=== PATIENT | male | born 1985 | race Caucasian/White ===

== ENCOUNTER 2017-06-16 20:14 | Emergency (ER) | payer SELFPAY ==
[~2017-06-16] VITALS: Ht 177.8 cm; Wt 68.0 kg
[2017-06-16] MEDS ORDERED: oxyCODONE/APAP 7.5/325 1 TAB TABLET PO ONE (20:45)
[2017-06-16] MEDS ORDERED: ONDANSETRON ODT 4 MG TAB.RAPDIS PO ONE (20:45)
--- NOTE | 2017-06-16 21:16 | PHYS DOC ---
General Chief Complaint: FACE PROBLEM Stated Complaint: JAW INJURY Time Seen by MD: 20:28 Source: patient Exam Limitations: no limitations Problems: History of Present Illness Initial Comments 31 y/o male to ED complains of face injury and left jaw pain. Patient states two nights ago a tow strap came loose hitting to the left side of the face. He was knocked down, denies LOC or neck pain. Mild bleeding from inside the mouth initially with severe left jaw pain at the TMJ. He has tried icing and over the counter medications at home however pain remains sharp/ severe at the left jaw. Left facial swelling has made chewing difficult patient has only been able to drink liquids and eat soup. No epistaxis or other nasal discharge, no ear pain or discharge. Denies global headache just pain at the face, no pain with EOM, no dizziness/n/v/photophobia. Timing/Duration: abrupt Severity: severe Location: facial Prearrival Treatment: over the counter meds, other Associated Symptoms: facial pain/swelling, poor solids intake Allergies: Coded Allergies: No Known Drug Allergies (Unverified , 06/16/17) Past Medical History Medical History: no pertinent history Surgical History: noncontributory Social History Smoker: cigarettes Alcohol: none Drugs: none Constitutional: denies chills, denies diaphoresis, denies fever, denies malaise Eyes: denies blindness, denies blurred vision, denies drainage, denies decreased acuity, denies photophobia Ears: denies dizziness, denies pain, denies tinnitus, denies bloody discharge, denies clear discharge Nose: denies congestion, denies epistaxis, denies bloody discharge, denies clear discharge Mouth: see HPI, denies loose teeth Throat: denies pain, denies neck stiffness Respiratory: denies cough, denies shortness of breath Cardiovascular: denies chest pain, denies syncope Gastrointestinal: denies nausea, denies vomiting Musculoskeletal: see HPI, denies back pain, denies muscle pain, denies neck pain Neurological: see HPI, denies numbness, denies paresthesia, denies weakness Physical Exam General Appearance: no apparent distress (pained expression), other (left facial swelling) Eyes: bilateral eye normal inspection, bilateral eye PERRL, bilateral eye EOMI (painless/full EOM), bilateral eye other (infraorbital swelling/bruising) Ears: bilateral ear auricle normal, bilateral ear canal normal, bilateral ear TM normal Nose: normal inspection (no discharge) Mouth/Throat: other (intraoral laceration left cheek at molars nonbleeding, TTP and swelling left face airway patent, ) Neck: non-tender, supple Cardiovascular/Respiratory: normal peripheral pulses, normal breath sounds Neurologic/Psychiatric: cat and dog bather II-XII nml as tested, no motor/sensory deficits, alert, normal mood/affect, oriented x 3 Skin: normal color, warm/dry Orders, Labs, Meds PATIENT: NAZARIO LAUREANO ACCOUNT: [id number] : 1985 LOCATION: ER AGE: 31 SEX: M EXAM STATUS: REG ER ORD. PHYSICIAN: MARÍA MILLS DO REASON: Left jaw trauma PROCEDURE: CT MAXILLOFACIAL WO CONTRAST EXAM: Maxillofacial bone CT without contrast. HISTORY: Trauma. TECHNIQUE: Computed tomographic images of the maximal facial bones were obtained without contrast. *One or more of the following individualized dose reduction techniques were utilized for this examination: 1. Automated exposure control. 2. Adjustment of the mA and/or kV according to patient size. 3. Use of iterative reconstruction technique. COMPARISON: None. FINDINGS: There are displaced inferior and lateral left orbital and anterior and posterior left maxillary sinus wall fractures. There is mild left maxillary sinus mucosal thickening and a tiny air-fluid level likely due to hemorrhage. There is obstruction of the left ostiomeatal unit. There is no evidence of entrapment of the left extraocular muscles or fat. The temporomandibular joints are intact. There are multiple dental restorations. There are a few missing teeth. The proximal cervical spine and visualized portions of the brain are unremarkable. IMPRESSION: Mildly displaced left inferior and lateral orbital and anterior and posterior maxillary wall fractures with a small left maxillary sinus hemorrhage. Electronically signed by: Edwina Mckee MD (06/16/2017 9:25 PM) [facility] DICTATED AND SIGNED BY: EDWINA MCKEE MD DATE: 06/16/172122 CC: PCP,NO; MARÍA MILLS DO ~ Intraoral laceration not associated with fractures, pain controlled with percocet. I discussed need for ENT consultation as outpatient, need for surgical repair. Discussed potential risks associated with no follow up, encouraged smoking cessation. His questions were answered he expressed agreement/understanding. Departure Time of Disposition: 21:49 Disposition: 01 HOME, SELF-CARE Diagnosis: Left orbit/maxillary sinus fractures, concussion Condition: STABLE Patient Instructions: Concussion and Brain Injury, [id number]-[id number], Orbital Floor Fracture, Non-Blowout Additional Instructions: Please review the patient education materials given by ED staff. No strenuous activity or exercise until cleared by doctor. Ice to affected area 4-6 times daily. [id number] ibuprofen for baseline discomfort. Prescription: Percocet 7.5 mg quantity 30, cephalexin As discussed to prevent potential serious complications from your injuries and is strongly suggested that you follow-up with an ear nose and throat surgeon. It is strongly recommended you stop smoking. You may choose to follow-up with: Dr. Vijay Roberts [phone] call Monday to schedule appointment Return to ED with new or changing symptoms. MARÍA MILLS DO Jun 16, 2017 21:16
--- NOTE | 2017-06-16 21:29 | RAD ---
EXAM: Maxillofacial bone CT without contrast. HISTORY: Trauma. TECHNIQUE: Computed tomographic images of the maximal facial bones were obtained without contrast. *One or more of the following individualized dose reduction techniques were utilized for this examination: 1. Automated exposure control. 2. Adjustment of the mA and/or kV according to patient size. 3. Use of iterative reconstruction technique. COMPARISON: None. FINDINGS: There are displaced inferior and lateral left orbital and anterior and posterior left maxillary sinus wall fractures. There is mild left maxillary sinus mucosal thickening and a tiny air-fluid level likely due to hemorrhage. There is obstruction of the left ostiomeatal unit. There is no evidence of entrapment of the left extraocular muscles or fat. The temporomandibular joints are intact. There are multiple dental restorations. There are a few missing teeth. The proximal cervical spine and visualized portions of the brain are unremarkable. IMPRESSION: Mildly displaced left inferior and lateral orbital and anterior and posterior maxillary wall fractures with a small left maxillary sinus hemorrhage. Electronically signed by: Edwina Mendosa MD (06/16/2017 9:25 PM) [facility]
[2017-06-16] MEDS ORDERED: CEPH500C PO (21:48)
[2017-06-16] MEDS ORDERED: OXYC-327 PO (21:48)
[2017-06-16 21:56] VITALS: BP 136/91
[2017-06-16] MEDS ORDERED: ACETAMINOPHEN/CODEINE 300/30MG 4TABLET STARTPACK. PO ONE (22:00)
[2017-06-16] MEDS ORDERED: cefTRIAXone IM 1 GM VIAL IM ONE (22:00)
== END 2017-06-16 22:10 | disposition home or self-care (01) ==
LOC: ER 20:14
DX: S06.0X0A Concussion without loss of consciousness, initial encounter (principal); S02.82XA Fracture of other specified skull and facial bones, left side, initial encounter for closed fracture; S02.40DA Maxillary fracture, left side, initial encounter for closed fracture; F17.210 Nicotine dependence, cigarettes, uncomplicated; W22.8XXA Striking against or struck by other objects, initial encounter; Y93.89 Activity, other specified; Y99.8 Other external cause status; Y92.89 Other specified places as the place of occurrence of the external cause
CPT/HCPCS: 70486; 96372; 99284; J0696; Q0162